=== PATIENT | female | born 1965 | race African-American/Black ===

== ENCOUNTER 2020-03-10 18:58 | Emergency (ER) | payer MEDICAID ==
[~2020-03-10] VITALS: Ht 170.2 cm; Wt 84.8 kg
[2020-03-10 18:58] VITALS: BP 198/94
--- NOTE | 2020-03-10 18:58 | NUR ---
ED Nurse Note: PT brought in by ambulance from home for C/O pain to pelvic area x 4 hours. pt reports feeling nauseous and has been constipated for the last few days.
[2020-03-10] MEDS ORDERED: Ketorolac 30mg Inj IV ONE (19:00)
[2020-03-10] MEDS ORDERED: Omnipaque-300 100ml vial INJ PRN (19:00)
[2020-03-10] MEDS ORDERED: Morphine Sulfate 4mg/ml Inj (IV USE ONLY) IVP ONE (19:15)
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
[2020-03-10 19:49] LABS: BASOPHILS % (AUTO) 1.6 % (0.0-2.0); EOSINOPHILS % (AUTO) 1.8 % (0.0-3.0); HEMATOCRIT 38.4 % (37.0-47.0); HEMOGLOBIN 12.6 G/DL (12.0-16.0); LYMPHOCYTES % (AUTO) 49.8 % (20.0-45.0); MEAN CORPUSCULAR VOLUME 92 FL (80-99); MONOCYTES % (AUTO) 9.7 % (1.0-10.0); NEUTROPHILS % (AUTO) 37.1 % (45.0-75.0); PLATELET COUNT 235 K/UL (150-450); RED BLOOD COUNT 4.17 M/UL (4.20-5.40); RED CELL DISTRIBUTION WIDTH 11.7 % (11.6-14.8); WHITE BLOOD COUNT 4.1 K/UL (4.8-10.8)
[2020-03-10 19:51] LABS: APPEARANCE,URINE CLEAR; BILIRUBIN, URINE NEGATIVE (NEGATIVE); COLOR,URINE PALE YELLOW; GLUCOSE, URINE (UA) NEGATIVE (NEGATIVE); KETONES,URINE NEGATIVE (NEGATIVE); LEUKOCYTE ESTERASE ,URINE NEGATIVE (NEGATIVE); NITRITE,URINE NEGATIVE (NEGATIVE); PH,URINE 8 (4.5-8.0); PROTEIN,URINE NEGATIVE (NEGATIVE); UROBILINOGEN,URINE NORMAL MG/DL (0.0-1.0)
--- NOTE | 2020-03-10 20:30 | NUR ---
ED Nurse Note: Pt resting in bed, NAD.
[2020-03-10 20:37] LABS: ANION GAP 10 mmol/L (5-15); BLOOD UREA NITROGEN 13 mg/dL (7-18); CALCIUM 9.3 MG/DL (8.5-10.1); CARBON DIOXIDE 30 MMOL/L (21-32); CHLORIDE 95 MMOL/L (98-107); CREATININE 1.1 MG/DL (0.55-1.30); POTASSIUM 3.3 MMOL/L (3.5-5.1); SODIUM 135 MMOL/L (136-145)
[2020-03-10 20:43] LABS: ALANINE AMINOTRANSFERASE 33 U/L (12-78); ALBUMIN/GLOBULIN RATIO 0.9 (1.0-2.7); ALKALINE PHOSPHATASE 87 U/L (46-116); ASPARTATE AMINO TRANSFERASE 39 U/L (15-37); BILIRUBIN,TOTAL 0.7 MG/DL (0.2-1.0)
[2020-03-10] MEDS ORDERED: Lisinopril 10mg tab ORAL ONE (20:45)
[2020-03-10] MEDS ORDERED: HydrALAZINE 25mg tab ORAL ONE (20:45)
--- NOTE | 2020-03-10 21:09 | Diagnostic Imaging Report ---
EXAM: CT Abdomen and Pelvis With Intravenous Contrast CLINICAL HISTORY: ABD PAIN TECHNIQUE: Axial computed tomography images of the abdomen and pelvis with intravenous contrast. CTDI is 7.5 mGy and DLP is 439 mGy-cm. One or more of the following dose reduction techniques were used: automated exposure control, adjustment of the mA and/or kV according to patient size, use of iterative reconstruction technique. Coronal and sagittal reformatted images were created and reviewed. COMPARISON: No relevant prior studies available. FINDINGS: Lung bases: Unremarkable. No mass. No consolidation. ABDOMEN: Liver: Falciform ligament calcification of uncertain significance, likely incidental. Unremarkable liver. Gallbladder and bile ducts: Unremarkable. No calcified stones. No ductal dilation. Pancreas: Unremarkable. No mass. No ductal dilation. Spleen: Unremarkable. No splenomegaly. Adrenals: Unremarkable. No mass. Kidneys and ureters: Benign bilateral renal cysts requiring no additional follow-up maximally 2.8 cm on the left. No hydronephrosis. Stomach and bowel: Liquid small and large bowel contents could be incidental or could represent an infectious or inflammatory enteritis or enterocolitis in the proper context. PELVIS: Appendix: No findings to suggest acute appendicitis. Bladder: Unremarkable. No mass. Reproductive: Unremarkable as visualized. ABDOMEN and PELVIS: Intraperitoneal space: Unremarkable. No free air. No significant fluid collection. Bones/joints: Degenerative L4-L5 disc findings. Otherwise unremarkable bones. Soft tissues: Unremarkable. Vasculature: Atherosclerotic vascular disease. No abdominal aortic aneurysm. Lymph nodes: Unremarkable. No enlarged lymph nodes. IMPRESSION: 1. Liquid small and large bowel contents could be incidental or could represent an infectious or inflammatory enteritis or enterocolitis in the proper context. 2. Otherwise no acute abnormality definitively identified to account for patient presentation. 3. Additional benign and chronic findings above.
[2020-03-10] MEDS ORDERED: CIPROFLOXACIN500 M2 ORAL (21:32)
[2020-03-10] MEDS ORDERED: METRONIDAZOLE500 MG ORAL (21:32)
[2020-03-10 21:45] VITALS: BP 168/89
[2020-03-10] MEDS ORDERED: metroNIDAZOLE 500mg tab ORAL ONE (21:45)
[2020-03-10] MEDS ORDERED: Ciprofloxacin 500mg tab ORAL ONE (21:45)
--- NOTE | 2020-03-10 21:45 | NUR ---
ER DISCHARGE NOTE: Patient is cleared to be discharged per ERMD, pt is aox4, on room air, with stable vital signs. pt was given dc and prescription instructions, pt was able to verbalize understanding, pt id band and iv site removed without complications. pt is able to ambulate with steady gait. pt took all belongings.
== END 2020-03-10 21:45 | disposition home or self-care (01) ==
LOC: EDBD 18:58 → EMR 19:19
DX: K52.9 Noninfective gastroenteritis and colitis, unspecified (principal); I10 Essential (primary) hypertension; Z59.0 Homelessness
CPT/HCPCS: 36415; 74177; 80053; 80307; 81003; 81025; 83690; 84484; 85025; 85730; 96361; 96374; 96375; J1885; J2405; J7030; Q9967; S0028; Z7502; 99284; J8499